=== PATIENT | female | born 1955 | race Caucasian/White ===

== ENCOUNTER 2017-12-02 14:58 | Outpatient (CLI) | payer OTHER | END 2017-12-02 14:59 | disposition home or self-care (01) | LOC: BICMAMMO 14:58 | PROVIDERS: ATTEND Internal Medicine Hematology & Oncology | DX: C50.919 Malignant neoplasm of unspecified site of unspecified female breast (principal); Z90.11 Acquired absence of right breast and nipple | CPT/HCPCS: 77066; G0279 ==

== ENCOUNTER 2019-01-11 13:45 | Outpatient (CLI) | payer MEDICARE, OTHER ==
--- NOTE | 2019-01-11 14:24 | MMO ---
Bilateral MAMMO Bilat Diag [facility]. CLINICAL HISTORY: Patient is 63 years old and is seen for diagnostic exam. The patient has no family history of breast cancer. The patient has a history of Lumpectomy procedure revealed invasive ductal right breast carcinoma in November, and Ultrasound Guided Core Biopsy procedure revealed invasive ductal right breast carcinoma in October,. The patient has a history of right Ultrasound Guided Core Biopsy in October, and left Excisional Biopsy in 2000 - benign. VIEWS: The views performed were: bilateral craniocaudal with tomosynthesis; bilateral exaggerated craniocaudal; bilateral mediolateral oblique with tomosynthesis; bilateral mediolateral; and right mediolateral oblique. FILMS COMPARED: The present examination has been compared to prior imaging studies performed at [facility] on 12/05/2013, 10/17/2014, 11/28/2015, 11/30/2016 and 12/02/2017. MAMMOGRAM FINDINGS: There are scattered fibroglandular densities. Finding 1: There are calcifications with grouped or clustered distribution seen in the upper-outer region of the right breast. These are in the region of the patient's lumpectomy scar and appear predominanty dystrophic in character. Some of these are new and not clearly dystrophic. Finding 2: There is a stable area of skin thickening seen in the right breast. In the left breast, there are no suspicious masses, calcifications or areas of architectural distortion. IMPRESSION: FINDING 1: CALCIFICATIONS IN THE RIGHT BREAST ARE PROBABLY BENIGN. FOLLOW-UP IN 6 MONTHS IS RECOMMENDED. THE RESULTS OF THIS EXAM WERE SENT TO THE PATIENT. ACR BI-RADS Category 3 - Probably benign finding - short interval follow-up suggested. [facility] will notify the patient of the need for additional imaging services. MAMMOGRAPHY NOTE: 1. A negative mammogram report should not delay a biopsy if a dominant of clinically suspicious mass is present. 2. Approximately 10% to 15% of breast cancers are not detected by mammography. 3. Adenosis and dense breasts may obscure an underlying neoplasm.
== END 2019-01-11 13:46 | disposition home or self-care (01) ==
LOC: BICMAMMO 13:45
PROVIDERS: ATTEND Specialist
DX: Z08 Encounter for follow-up examination after completed treatment for malignant neoplasm (principal); Z85.3 Personal history of malignant neoplasm of breast; R92.1 Mammographic calcification found on diagnostic imaging of breast
CPT/HCPCS: 77066; G0279

== ENCOUNTER 2019-07-20 15:04 | Outpatient (CLI) | payer MEDICARE, OTHER ==
--- NOTE | 2019-07-20 15:58 | MMO ---
Right Breast MAMMO Unilat Diag [facility] RT+AIDAN. CLINICAL HISTORY: Patient is 63 years old and is seen for follow-up at short-interval from prior study. The patient has the following family history of breast cancer: 2 cousin females. The patient has a history of lumpectomy procedure revealed invasive ductal right breast carcinoma in November, and Ultrasound guided core biopsy procedure revealed invasive ductal right breast carcinoma in October,. The patient has a history of right Ultrasound Guided Core Biopsy in October, and left Excisional Biopsy in 2000 - benign. VIEWS: The views performed were: right craniocaudal with tomosynthesis; right mediolateral oblique with tomosynthesis; and right mediolateral with tomosynthesis. FILMS COMPARED: The present examination has been compared to prior imaging studies performed at [facility] on 11/28/2015, 11/30/2016, 12/02/2017 and 01/11/2019. This study has been interpreted with the assistance of computer-aided detection. MAMMOGRAM FINDINGS: There are scattered fibroglandular densities. There are dystrophic calcifications seen in the right breast. Calcifications are becoming more coalescent, and favor fat necrosis. IMPRESSION: CALCIFICATIONS IN THE RIGHT BREAST ARE PROBABLY BENIGN. FOLLOW-UP IN 6 MONTHS IS RECOMMENDED. CALCIFICATIONS OF THE RIGHT BREAST ARE MOST LIKELY RELATED TO FAT NECROSIS. THE RESULTS OF THIS EXAM WERE SENT TO THE PATIENT. ACR BI-RADS Category 3 - Probably benign finding - short interval follow-up suggested. [facility] will notify the patient of the need for additional imaging services. MAMMOGRAPHY NOTE: 1. A negative mammogram report should not delay a biopsy if a dominant of clinically suspicious mass is present. 2. Approximately 10% to 15% of breast cancers are not detected by mammography. 3. Adenosis and dense breasts may obscure an underlying neoplasm. Reported by: ENEIDA FERRERA MD Electonically Signed: [id number]
== END 2019-07-20 15:05 | disposition home or self-care (01) ==
LOC: BICMAMMO 15:04
PROVIDERS: ATTEND Specialist
DX: Z08 Encounter for follow-up examination after completed treatment for malignant neoplasm (principal); R92.1 Mammographic calcification found on diagnostic imaging of breast; Z85.3 Personal history of malignant neoplasm of breast
CPT/HCPCS: 77065; G0279

== ENCOUNTER 2020-02-14 14:20 | Outpatient (CLI) | payer MEDICARE, OTHER ==
--- NOTE | 2020-02-14 15:15 | MMO ---
Bilateral MAMMO Bilat Diag [facility]. CLINICAL HISTORY: Patient is 64 years old and is seen for diagnostic exam. The patient has the following family history of breast cancer: 2 cousin females. The patient has a history of lumpectomy procedure revealed invasive ductal right breast carcinoma in November, and Ultrasound guided core biopsy procedure revealed invasive ductal right breast carcinoma in October,. The patient has a history of right Skin punch biopsy in 2018 - benign, right Ultrasound Guided Core Biopsy in October, and left Excisional Biopsy in 2000 - benign. VIEWS: The views performed were: bilateral craniocaudal with tomosynthesis; bilateral mediolateral oblique with tomosynthesis; bilateral mediolateral with tomosynthesis; right mediolateral oblique; and right exaggerated craniocaudal. FILMS COMPARED: The present examination has been compared to prior imaging studies performed at [facility] on 11/30/2016, 12/02/2017, 01/11/2019 and 07/20/2019. This study has been interpreted with the assistance of computer-aided detection. MAMMOGRAM FINDINGS: There are scattered fibroglandular densities. Finding 1: There is an area of architectural distortion with associated post-surgical scar seen in the right breast. Finding 2: There are benign appearing calcifications seen in both breasts. There are no suspicious masses, suspicious calcifications, or new areas of architectural distortion. IMPRESSION: THERE IS NO MAMMOGRAPHIC EVIDENCE OF MALIGNANCY. A ROUTINE FOLLOW-UP MAMMOGRAM IN 1 YEAR IS RECOMMENDED. THE RESULTS OF THIS EXAM WERE SENT TO THE PATIENT. ACR BI-RADS Category 2 - Benign finding MAMMOGRAPHY NOTE: 1. A negative mammogram report should not delay a biopsy if a dominant of clinically suspicious mass is present. 2. Approximately 10% to 15% of breast cancers are not detected by mammography. 3. Adenosis and dense breasts may obscure an underlying neoplasm. Reported by: ESTEVAN NAJERA MD Electonically Signed: [id number]
--- NOTE | 2020-02-14 17:27 | BD ---
Exam: DEXA Bone Density INDICATIONS: Postmenopausal screening. Lumbar Spine: BMD (g/cm2) T-SCORE L1 1.041 0.5 L2 1.129 0.9 L3 1.387 2.8 L4 1.429 3.3 L1-L4 1.263 2.0 Femoral Neck: 0.692 =1.4 Total Femur: 0.983 -0.4 Impression: 1. Bone mineral density of the femoral neck indicates osteopenia. 2. Bone mineral density of the lumbar spine within normal range. 3. Ten year fracture risk: Major osteoporotic fracture: 7.6%. Hip fracture: 0.7%. POS: AH
== END 2020-02-14 14:21 | disposition home or self-care (01) ==
LOC: BICMAMMO 14:20
PROVIDERS: ATTEND Specialist
DX: Z13.820 Encounter for screening for osteoporosis (principal); Z85.3 Personal history of malignant neoplasm of breast; N95.8 Other specified menopausal and perimenopausal disorders; M85.859 Other specified disorders of bone density and structure, unspecified thigh
CPT/HCPCS: 77066; 77080; G0279

== ENCOUNTER 2022-09-08 15:27 | Outpatient (CLI) | payer MEDICARE | END 2022-09-08 15:28 | disposition home or self-care (01) | LOC: BICMAMMO 15:27 | PROVIDERS: ATTEND Specialist | DX: Z12.31 Encounter for screening mammogram for malignant neoplasm of breast (principal); R92.1 Mammographic calcification found on diagnostic imaging of breast; Z80.3 Family history of malignant neoplasm of breast; Z98.890 Other specified postprocedural states; Z86.018 Personal history of other benign neoplasm | CPT/HCPCS: 77063; 77067 ==

== ENCOUNTER 2023-10-19 13:55 | Outpatient (CLI) | payer MEDICARE | END 2023-10-19 13:56 | disposition home or self-care (01) | LOC: BICMAMMO 13:55 | PROVIDERS: ATTEND Internal Medicine Hematology & Oncology | DX: Z12.31 Encounter for screening mammogram for malignant neoplasm of breast (principal); Z98.890 Other specified postprocedural states; Z91.89 Other specified personal risk factors, not elsewhere classified; Z80.3 Family history of malignant neoplasm of breast | CPT/HCPCS: 77063; 77067 ==

== ENCOUNTER 2025-07-25 16:27 | Outpatient (CLI) | payer MEDICARE | END 2025-07-25 16:28 | disposition home or self-care (01) | LOC: SCSRAD 16:27 | PROVIDERS: ATTEND Family Medicine | DX: M25.561 Pain in right knee (principal); M25.562 Pain in left knee; M17.0 Bilateral primary osteoarthritis of knee ==